=== PATIENT | female | born 1965 | race Caucasian/White ===

== ENCOUNTER → 2017-03-19 | Outpatient (CLI) | payer OTHER ==
[~2017-03-19] MED LIST: REGADENOSON 0.4 MG/5 ML DISP.SYRIN. IV ONE
--- NOTE | 2017-03-19 13:25 | PCVCIMAG ---
APPROVED REPORT Exam: Nuclear Stress Test Indication: Chest pain, Palpitations Patient Location: Out-Patient Stress Nurse: Ashley Weathers RN, Nicolette Arroyo RN MA Tech:Mark Anthony Nava NMTCB Ht: 5 ft 2 in Wt: 169 lbs BSA: 1.78 m2 HR: 64 bpm BP: 138/87 mmHg BMI: 30.9 Rhythm: Bradycardia Medical History Medical History: HTN, Medications: Metoprolol- held Allergies: NKDA Stress Test Details Stress Test: Pharmacologic stress was paired with low level exercise. Reason for pharmacologic stress test: physical limitation. HR Resting HR: 64 bpmMax Heart Rate (APMHR): 167 bpm Max HR Achieved: 104 bpmTarget HR (85% APMHR): 141 bpm % of APMHR: 62 Recovery HR: 72 bpm BP Resting BP: 138/87 mmHg Max BP: 136/78 mmHg ECG Resting ECG: Sinus Rhythm, NSSTT changes Stress ECG: Sinus Rhythm, NSSTT changes ST Change: Non-ischemic Clinical Reason for Termination: Completed protocol Stress Symptoms: Dyspnea, Headache Symptoms resolved over time NM EXAM: Myocardial Perfusion REST/STRESS Imaging Protocol: Rest Tc-99m/Stress Tc-99m 1 day Resting Data Rest SPECT myocardial perfusion imaging was performed in supine position 45 minutes following the intravenous injection of 8.9 mCi of Tc-99m Sestamibi. Time of rest injection: 1000 Date: 03/19/2017 Administration Route: IV Administration Site: Left Hand Pharmacologic Stress Pharmacologic stress test was performed by injecting Regadenoson 0.4 mg IV push followed by the intravenous injection of 36 mCi of Tc-99m Sestamibi. Time of stress injection: 1120 Date: 03/19/2017 Administration Route: IV Administration Site: Left Hand Gated Stress SPECT was performed 45 minutes after stress injection. The images were gated to evaluate regional wall motion and calculate left ventricular ejection fraction. Study Quality Study: Good Study Data Post stress, the left ventricular ejection was 79%.. SSS: 0 SRS: 0 SDS: 0 TID = 1.09. Perfusion Normal left ventricular perfusion. Normal perfusion on both the stress and rest images. Wall Motion Normal left ventricular wall motion. Nuclear Conclusion ECG Findings: non-ischemic Clinical Findings: non-diagnostic Nuclear Findings: negative for ischemia This study is of low probability for inducible ischemia or prior infarct. Normal global and segmental LV systolic function.
--- NOTE | 2017-03-19 13:28 | PCVCIMAG ---
APPROVED REPORT Study performed: 03/19/2017 08:41:26 EXAM: Comprehensive 2D, Doppler, and color-flow Echocardiogram Patient Location: Echo lab Room #: 2Status: routine BSA: 1.78 HR: 58 bpmBP: 110/70 mmHg Rhythm: Bradycardia Other Information Study Quality: Good Risk Factors: Cardiac Risk Factors: HTN Indications Palpitations Fatigue Hypertension/HDD 2D Dimensions LVEF(%): 63.84 (>50%) IVSd: 6.49 (7-11mm)LVOT Diam: 17.96 (18-24mm) LVDd: 44.69 mm PWd: 5.65 (7-11mm)Ascending Ao: 27.25 (22-36mm) LVDs: 29.25 (25-40mm) Left Atrium: 38.68 (27-40mm) Aortic Root: 21.75 mm LV Single Plane 4CH: 59.46 % LV Single Plane 2CH: 65.97 %Ledezma's LVEF: 62.72 % Biplane EF: 63.8 % Volumes Left Atrial Volume (Systole) Single Plane 4CH: 42.40 mLSingle Plane 2CH: 31.10 mL Biplane LA Volume: 37.00 mLLA ESV Index: 20.00 mL/m2 Aortic Valve AoV Peak Fei.: 1.30 m/s AO Peak Gr.: 6.80 mmHgLVOT Max P.96 mmHg LVOT Max V: 0.86 m/s RICHARD Vmax: 1.68 cm2 Mitral Valve E/A Ratio: 2.4 MV Decel. Time: 148.28 ms MV E Max Fei.: 0.79 m/s MV A Fei.: 0.33 m/s IVRT: 86.51 ms TDI E/Lateral E': 8.78E/Medial E': 7.90 Medial E' Fei.: 0.10 m/s Lateral E' Fei.: 0.09 m/s Pulmonary Valve PV Peak Fei.: 0.73 m/sPV Peak Gr.: 2.13 mmHg Pulmonary Vein P Vein S: 0.53 m/sP Vein A: 0.27 m/s P Vein D: 0.40 m/sP Vein A Dur.: 100.3 msec P Vein S/D Ratio: 1.33 Tricuspid Valve TR Peak Fei.: 2.53 m/s TR Peak Gr.: 25.68 mmHg TV Vmax: 0.63 m/sPA Pressure: 33.00 mmHg Left Ventricle The left ventricle is normal size. There is normal LV segmental wall motion. There is normal left ventricular wall thickness. Left ventricular systolic function is normal. The left ventricular ejection fraction is within the normal range. LVEF is 60-65%. The left ventricular diastolic function is normal. Right Ventricle The right ventricle is normal size. The right ventricular systolic function is normal. Atria The left atrium size is normal. The right atrium size is normal. Aortic Valve The aortic valve is normal in structure. No aortic regurgitation is present. There is no aortic valvular stenosis. Mitral Valve The mitral valve is normal in structure. Trace to mild mitral regurgitation. No evidence of mitral valve stenosis. Tricuspid Valve The tricuspid valve is normal in structure. Trace to mild tricuspid regurgitation. Mild pulmonary hypertension with a PA pressure of 33 mmHg. Pulmonic Valve The pulmonary valve is normal in structure. There is no pulmonic valvular regurgitation. Great Vessels The aortic root is normal in size. The ascending aorta is normal in size. IVC is normal in size and collapses with >50% inspiration Pericardium There is no pericardial effusion. There is no pleural effusion. <Conclusion> The left ventricle is normal size. Left ventricular systolic function is normal. The right ventricle is normal size. The left atrium size is normal. The aortic valve is normal in structure. Trace to mild mitral regurgitation. Trace to mild tricuspid regurgitation.
== END | disposition home or self-care (01) ==
LOC: PCVCIMAG 08:39
PROVIDERS: ATTEND Internal Medicine Cardiovascular Disease
DX: I10 Essential (primary) hypertension (principal); R07.9 Chest pain, unspecified; R06.00 Dyspnea, unspecified; I49.3 Ventricular premature depolarization; R00.2 Palpitations
CPT/HCPCS: 78452; 93005; 93017; 93306; A9500; G0463; J2785